=== PATIENT | male | born 1990 | race Two or more races ===

== ENCOUNTER 2017-09-11 18:32 | Emergency (ER) | payer MEDICAID, OTHER ==
[~2017-09-11] VITALS: Ht 170.2 cm; Wt 90.7 kg
[2017-09-11 19:03] VITALS: BP 109/76
== END 2017-09-12 00:14 | disposition left against medical advice (07) ==
LOC: ER 18:39
DX: R10.9 Unspecified abdominal pain (principal); M54.5 Low back pain; Z53.21 Procedure and treatment not carried out due to patient leaving prior to being seen by health care provider

== ENCOUNTER 2020-10-31 22:44 | Emergency (ER) | payer MEDICAID ==
[~2020-10-31] VITALS: Ht 165.1 cm; Wt 104.3 kg
[2020-10-31 23:06] VITALS: BP 0/0
== END 2020-10-31 23:00 ==
LOC: ER 22:44 → EDBD 22:44 → ER 23:00
DX: I46.9 Cardiac arrest, cause unspecified (principal); J98.2 Interstitial emphysema; J96.90 Respiratory failure, unspecified, unspecified whether with hypoxia or hypercapnia
CPT/HCPCS: 92950